=== PATIENT | female | born 1995 | race Caucasian/White ===

== ENCOUNTER → 2020-11-01 10:01 | Outpatient (CLI) | payer BC, SELFPAY ==
--- NOTE | ~2020-11-01 | US_ITS ---
US breast RT complete DATE: 11/01/2020 10:17 INDICATION: Right breast lump for 2 months TECHNIQUE: High-resolution ultrasound imaging of the complete right breast COMPARISON: None FINDINGS: No suspicious mass or shadowing is detected. No cyst is identified. IMPRESSION: BI-RADS Category 1: Negative Reviewed, dictated and finalized at [facility]. Reviewed, dictated and finalized at location [facility].
== END ==
PROVIDERS: Visit Provider Obstetrics & Gynecology
DX: N63.10 Unspecified lump in the right breast, unspecified quadrant (principal)
CPT/HCPCS: 76641

== ENCOUNTER 2021-06-18 09:05 | Emergency (ER) | payer BC, SELFPAY ==
[2021-06-18 09:15] VITALS: BP 121/83; PULSE 95; RESP 16; TEMP 36.2; O2SAT 98
--- NOTE | 2021-06-18 09:15 | ED.FEMALEGU ---
HPI - Female Genitourinary General Chief complaint: Urogenital-Female Stated complaint: bleeding Time Seen by Provider: 06/18/21 09:15 Source: patient and RN notes reviewed Mode of arrival: ambulatory Limitations: no limitations History of Present Illness HPI Narrative: 25-year-old female presents to the [facility] with complaints of I woke up in a puddle of blood. Patient states it is vaginally. Has some left lower quadrant pain, tenderness. No nausea vomiting or diarrhea. No urinary symptoms. Patient states that she saw her HOD CARRIER on , 3 days ago due to painful intercourse. HOD CARRIER told her she has a swollen left ovary and if she starts bleeding heavily to go to the emergency room. Until yesterday normally uses 3 tampons a day. During the night she used a super tampon and bled through it Patient denies , states that she had test at her HOD CARRIER on . MD elicited complaint: vaginal bleeding Related Data Allergies Allergy/AdvReac Type Severity Reaction Status Date / Time avocado Allergy Severe HIVES/DIFFICULTY Verified 04/24/19 07:32 BREATHING Review of Systems Review of Systems: All systems reviewed & are unremarkable except as noted in HPI and below Constitutional: Constitutional: Reports no additional constitutional complaints, Denies chills and Denies fatigue Eyes: Eyes: Reports no additional eye complaints ENT: Reports system reviewed and no additional complaints, except as documented Cardiovascular: Cardiovascular: Reports no additional cardiovascular complaints and Denies chest pain Respiratory: Respiratory: Reports no additional respiratory complaints, Denies cough and Denies dyspnea Gastrointestinal: Gastrointestinal: Reports as per HPI, Reports abdominal pain, Denies diarrhea, Denies nausea and Denies vomiting Genitourinary: Genitourinary: Reports as per HPI and Reports abnormal vaginal bleeding Musculoskeletal: Musculoskeletal: Reports no additional musculoskeletal complaints Integumentary/Breasts: Skin/Breast: Reports system reviewed and no additional complaints, except as docu Neurologic: Reports system reviewed and no additional complaints, except as documented Psychiatric: Psychiatric: Reports no additional psychiatric complaints Allergic/Immunologic: Allergic/Immunologic: Reports no additional allergic/immunologic complaints [facility] Past Medical History Medical History (Updated 06/18/21 @ 09:38 by Zunilda Zamora) No significant medical problems Surgical History Surgical History (Updated 06/18/21 @ 09:35 by Zunilda Zamora) No significant past surgical history Social History Social History (Updated 06/18/21 @ 09:35 by Zunilda Zamora) Living arrangements: with family Gender identity (if verbalized by the patient): Female Comments At the time of my signature, I reviewed and agree with the nursing past medical, surgical, social, and family history. There is no relevant family history pertinent to the patient complaint. Exam Const: General: healthy appearing, no acute distress and alert Nutritional Appearance: well nourished Orientation/consciousness: patient oriented x3 Limitations: no limitations HENMT: Head: normal to inspection Eyes: Conjunctivae: conjunctivae normal Pupils: Equal, round and reactive pupils present Neck: Neck: normal visual inspection, no lymphadenopathy and no meningeal signs Chest: Chest palpation & inspection: normal inspection of the chest Resp: Effort & Inspection: normal respiratory effort Cardio: Rate: regular rate GI: GI Palp: Yes Soft to palpation and No Tenderness to palpation present (GI) : General: Yes no CVA tenderness Back/Spine/Pelvis: Back: no CVA tenderness Neuro: General: patient oriented x3, moves all extremities, no meningeal signs and no focal motor deficits Speech: normal speech Gait exam (Neuro): Normal gait present Extrem: General: normal to inspection and no pedal edema Psych: Menta
== END 2021-06-18 09:25 | disposition short-term general hospital (02) ==
PROVIDERS: Emergency Provider Nurse Practitioner; PCP Family Medicine Adolescent Medicine
DX: N92.0 Excessive and frequent menstruation with regular cycle (principal)
CPT/HCPCS: 99212; G0463

== ENCOUNTER 2024-07-15 08:19 | Outpatient (CLI) | payer OTHER, SELFPAY ==
--- NOTE | ~2024-07-15 | US_ITS ---
EXAMINATION TYPE: US breast RT limited COMPARISON: 11/01/2020 REASON FOR STUDY: Rt Breast lump TECHNIQUE: Targeted sonographic evaluation of the right breast was performed. INTERPRETATION: Targeted sonographic imaging of the 10:00 position right breast at the area of clinical concern demon strates apparent dense fibroglandular tissue. No discrete mass lesion or fluid collection seen. Appea stiven is similar to prior ultrasound. IMPRESSION: Probable dense fibroglandular tissue in the area of palpable concern. No mass lesion or fluid collect ion. BI-RADS CATEGORY: BI-RADS 1: Normal. Reviewed, dictated and finalized at location [facility]. [employer] IMPRESSION: Probable dense fibroglandular tissue in the area of palpable concern. No mass l esion or fluid collection. BI-RADS CATEGORY: BI-RADS 1: Normal.
--- NOTE | ~2024-07-15 | US_ITS ---
EXAMINATION: US pelvic complete w TV INDICATION: Pelvic pain Comparison:No prior studies for comparison. TECHNIQUE: Multiple transabdominal and endovaginal sonographic images of the pelvis performed. FINDINGS: The uterus measures 7.6 x 3.6 x 4.3 cm. There is an IUD present in the endometrium. The end ometrial complex measures 3 mm. The right ovary measures 3 x 1.7 x 2.5 cm and the left ovary measures 3 x 2.2 x 2.6 cm. There are sm all follicles in each ovary. Normal doppler signal in both ovaries. There is no free fluid in the pelvis. There are no abnormal masses seen on either side. IMPRESSION: 1. Unremarkable pelvic ultrasound. Reviewed, dictated and finalized at location [facility]. SPL[employer]ER
== END 2024-07-15 08:20 | disposition home or self-care (01) ==
DX: R10.2 Pelvic and perineal pain (principal); N63.12 Unspecified lump in the right breast, upper inner quadrant
CPT/HCPCS: 76642; 76830; 76856